=== PATIENT | female | born 1990 | race Caucasian/White ===

== ENCOUNTER 2016-11-23 06:01 | Inpatient (IN) | payer OTHER ==
[2016-11-23] MEDS ORDERED: EPSOM SALT 454 GM TP PRN (06:17)
[2016-11-23] MEDS ORDERED: LR 1,000 ML IV PRN (06:17)
[2016-11-23] MEDS ORDERED: LIDOCAINE 1% 30 ML SDV SC PRN (06:17)
[2016-11-23] MEDS ORDERED: OXYTOCIN/RINGERS LACTATE 1,000 ML IV PRN (06:17)
[2016-11-23] MEDS ORDERED: OLIVE OIL 118 ML BTL MISC PRN (06:17)
[2016-11-23] MEDS ORDERED: TERBUTALINE SULFATE 1 MG/ML VIAL IV PRN (06:17)
--- NOTE | 2016-11-23 06:22 | OBPROG ---
OBG Progress Note Assessment/Plan: Assessment: Plan: Subjective: Denies feeling great pain. " I am feeling cramping." - SVE Dilation (cm): 3 Effacement (%): 50 Station: -2 Current Contraction Pattern: Regular FHR (bpm): 135 Membranes: Intact - Physical Exam General Appearance: WD/WN, alert, no apparent distress Estimated Weight: [id number] Respiratory: chest non-tender, lungs clear, normal breath sounds Cardiac/Chest: regular rate, rhythm Abdomen: normal bowel sounds Membranes: Intact Extremities: normal range of motion, Timothy's sign (negative bilaterally) DTR- Lower Extremities: Knee (R): 1+, Knee (L): 1+ Skin: normal color, warm/dry Neuro/Psych: no motor/sensory deficits, alert, normal mood/affect, oriented x 3 ICD10 Worksheet Patient Problems: Problems Problem Status Onset (spontaneous vaginal delivery) Acute
[2016-11-23] MEDS ORDERED: OXYTOCIN/RINGERS LACTATE 500 ML IV SCH (06:30)
[2016-11-23] MEDS ORDERED: AMMONIA AROMATIC 1 EACH AMP IH ONE (06:33)
[2016-11-23] MEDS ORDERED: MISOPROSTOL 200 MCG TAB ONE (07:09)
--- NOTE | 2016-11-23 07:23 | GHP ---
[f rep st] HISTORY AND PHYSICAL DATE OF ADMISSION: 11/23/2016 HISTORY OF PRESENT ILLNESS: The patient is a 25-year-old, 2, para 1, living 1, with an EDC of 11/14/2016, which gives her a gestational age of 41-2/7 weeks. Patient feeling positive mo vement. Denies rupture of membranes. Denies bloody show. States feeling some cramping. On admit to Labor and Delivery, Morejon bulb that was placed yesterday in the office at 5 p.m. on 11/22/2016 fe ll out. Exam was 2-3 cm, 50% effaced, -2 station, cephalic, mid, soft. MEDICAL HISTORY: The patient has a history of frequent UTIs. SURGICAL HISTORY: Broken right elbow repair at age 13, tonsillectomy at age 20. history in 05/2015 a male at 8 pounds 11 ounces, 41+ weeks, 24-hour labor, vaginal delivery with an epidural . The patient had a third-degree tear and a right periurethral tear. OTHER HISTORY: Patient is A negative. Rubella non immune. One hour GTT was abnormal. T hree hour GTT was within normal limits. The patient at 32 weeks declined Tdap, had Tdap as a G1. FAMILY HISTORY: Noncontributory. ASSESSMENT: GENERAL: Patient is awake, alert, oriented x3. LUNGS: Clear bilaterally. ABDOMEN: Bowel sounds are positive in all 4 quadrants. DTRs are 1+ bilaterally. Homans sign is negative brandt aterally. Exam of cervix was 2-3 cm, 50% effaced, soft, -2 station, cephalic, and mid. LABS: Patient is A negative. Antibody negative. RPR is nonreactive. Rubella is nonimmune. Hepat itis is negative. HIV is negative. Pap was negative. Gonorrhea and chlamydia in 03/2016 were both negative. Quad screen on 06/01/2016 was negative. Her last hematocrit was 35.4. PLAN: Patient is GBS negative. Epidural for pain relief at patient request. Pitocin for induction of labor. The patient verbalized understanding of Pitocin per protocol. The patient requesting be ginning Pitocin at 1 milliunit. This was consented to. The patient hoping for a similar delivery t o her last baby. Explained the procedure, Pitocin, AROM of bag of water. Verbalized understanding. Dr. Randee Tamayo will take call today. Will take over care at 7 a.m. /[id number]/MODL
[2016-11-23 07:59] LABS: % IMMATURE GRANULYOCYTES 0.5 % (0.0-1.1); ABSOLUTE IMMATURE GRANULOCYTES 0.05 10^3/uL (0.00-0.10); ADD DIFF? NO; ADD MORPH? NO; ADD SCAN? NO; ATYPICAL LYMPHOCYTE FLAG 10 (0-99); FRAGMENT RBC FLAG 0 (0-99); HEMATOCRIT 40.6 % (38.0-47.0); HEMOGLOBIN 13.6 g/dL (12.6-16.3); LEFT SHIFT FLG 0 (0-99); LIPEMIA HEMOLYSIS FLAG 80 (0-99); MEAN CELL HEMOGLOBIN 30.6 pg (27.9-34.1); MEAN CELL HEMOGLOBIN CONCENTR. 33.5 g/dL (32.4-36.7); MEAN CELL VOLUME 91.2 fL (81.5-99.8); PLATELET CLUMPS FLAG 0 (0-99); PLATELET COUNT 226 10^3/uL (150-400); RED BLOOD CELL COUNT 4.45 10^6/uL (4.18-5.33)
[2016-11-23] MEDS ORDERED: PHENYLEPHRINE HCL 100 MCG/ML SYR ONE (12:54)
[2016-11-23] MEDS ORDERED: BUPIVACAINE 0.25% 30 ML SDV ONE (12:54)
[2016-11-23] MEDS ORDERED: fentaNYL 100 MCG/2 ML INJ ONE (12:55)
--- NOTE | 2016-11-23 14:09 | OBPROG ---
OBG Progress Note Assessment/Plan: Assessment: Plan: Subjective: patient comfortable with epidural. AROM - small amount of fluid. camargo in place Objective: 11/23/16 07:35 Patient ABO/Rh A NEGATIVE 11/23/16 07:35 - SVE Dilation (cm): 3, 4 Effacement (%): 50 Station: -2 Current Contraction Pattern: Regular FHR Pattern Variability: Moderate FHR Category: 1 Membranes: AROM Amniotic Fluid Color: Clear, Blood Tinged - Physical Exam Estimated Weight: [id number] ICD10 Worksheet Patient Problems: Problems Problem Status Onset (spontaneous vaginal delivery) Acute
[2016-11-23] MEDS ORDERED: fentaNYL 2MCG/ML/BUP 0.1% RTU 100 ML BAG EP ONE (14:52)
--- NOTE | 2016-11-23 16:38 | OBPROG ---
OBG Progress Note Assessment/Plan: Assessment: Plan: Subjective: patient comfortable with epidural. pitocin is at 18 mu. minimal change in cervix. IUPC placed. patient repositioned into hands and knees. Objective: 11/23/16 07:35 Patient ABO/Rh A NEGATIVE 11/23/16 07:35 - SVE Dilation (cm): 3, 4 Effacement (%): 50 Station: -2 Current Contraction Pattern: Regular FHR Pattern Variability: Moderate FHR Category: 1 Membranes: AROM - Physical Exam Estimated Weight: [id number] ICD10 Worksheet Patient Problems: Problems Problem Status Onset (spontaneous vaginal delivery) Acute
--- NOTE | 2016-11-23 18:34 | OBPROG ---
OBG Progress Note Assessment/Plan: Assessment: Plan: Subjective: patient doing well. comfortable with epidural. out of hands and knees position. SVE 5/70/-2. will continue to reposition. contractions adequate. Objective: 11/23/16 07:35 Patient ABO/Rh A NEGATIVE 11/23/16 07:35 - SVE Dilation (cm): 5 Effacement (%): 75 Station: -2 Current Contraction Pattern: Regular FHR Pattern Variability: Moderate FHR Category: 2 - Physical Exam Estimated Weight: [id number] ICD10 Worksheet Patient Problems: Problems Problem Status Onset (spontaneous vaginal delivery) Acute
--- NOTE | 2016-11-23 19:56 | OBPROC ---
- Labor and Delivery Onset of Contractions Date: 11/23/16 Onset of Contractions Time: 16:45 Onset of Contractions Type: Induced Rupture of Membranes Date: 11/23/16 Rupture of Membranes Time: 13:55 Rupture of Membranes Type: Artificial Amniotic Fluid Color: Clear Delivery Type: Spontaneous Placenta Delivery Date: 11/23/16 Placenta Delivery Time: 19:33 Episiotomy/Laceration: 2nd Degree Repair: 3-0 EBL: 300 Complications: None - Medications Labor Augmentation/Induction Meds Used: Pitocin Labor Augmentation/Induction Indication: Post Dates Anesthesia: Epidural - Info A Delivery Date: 11/23/16 Delivery Time: 19:25 Sex of : Female Score (1 Min): 8 Score (5 Min): 9
[2016-11-23] MEDS ORDERED: HYDROCODONE/APAP 5/325 TAB PO PRN (19:57)
[2016-11-23] MEDS ORDERED: ACETAMINOPHEN 325 MG TAB PO PRN (19:57)
[2016-11-23] MEDS ORDERED: HYDROCORTISONE 0.5% CREAM TP PRN (19:57)
[2016-11-23] MEDS ORDERED: SIMETHICONE 80 MG TAB CHEW PO PRN (19:57)
[2016-11-23] MEDS: IBUPROFEN 600 MG TAB PO PRN (19:57)
[2016-11-24] MEDS: IBUPROFEN 600 MG TAB PO PRN ×4 (03:40→22:07)
[2016-11-24 08:20] VITALS: RESP 16
--- NOTE | 2016-11-24 08:23 | SOAPPROG ---
SOAP Progress Note Assessment/Plan: Assessment: 25y/o day 1 s/p 11/23 @1925 Plan: Routine PP care Rev PP precautions Anticipate discharge to home tomorrow 11/2511/24/16 08:20 Subjective: Pt resting in bed with on chest. Pain well-controlled. Tolerating regular diet. Reports lochia becoming light. going well. Voiding without difficulty. Denies flatus, BM. Objective: Vital Signs Temp Pulse Resp BP Pulse Ox 36.8 C 81 16 112/73 97 11/24/16 08:00 11/24/16 08:00 11/24/16 08:00 11/24/16 08:00 11/24/16 08:00 Laboratory Results 11/23/16 07:35 11/23/16 11/24/16 11/25/16 05:59 05:59 05:59 Output Total 300 Balance -300 Physical Exam - Physical Exam General Appearance: alert, no apparent distress Respiratory: lungs clear, normal breath sounds Cardiac/Chest: regular rate, rhythm Abdomen: non-tender, soft Pelvic Exam: vaginal bleeding (lochia light), other (fundus firm @U) Skin: normal color, warm/dry Extremities: normal range of motion, non-tender, pedal edema (trace BLE edema) Neuro/Psych: alert, normal mood/affect, oriented x 3 ICD10 Worksheet Patient Problems: Problems Problem Status Onset (spontaneous vaginal delivery) Acute
[2016-11-25] MEDS: IBUPROFEN 600 MG TAB PO PRN ×2 (06:26→12:26)
--- NOTE | 2016-11-25 09:40 | SOAPPROG ---
SOAP Progress Note Assessment/Plan: Assessment: PPD 2 s/p sore nipples Plan: D/C home 11/25/16 09:37 Subjective: Doing well. Baby had cluster feeding through noc so nipples are very sore. Has apno cream and has used sparingly. Urinating fine. bld is light. Worse cramps yesterday but ibu was controlling. Bottom not too sore. Rec'd Rhogam Objective: Vital Signs Temp Pulse Resp BP Pulse Ox 36.5 C 78 16 110/77 97 11/24/16 20:52 11/24/16 20:52 11/24/16 20:52 11/24/16 20:52 11/24/16 20:52 Laboratory Results 11/23/16 07:35 11/24/16 11/25/16 11/26/16 05:59 05:59 05:59 Output Total 300 Balance -300 Physical Exam - Physical Exam General Appearance: WD/WN Abdomen: non-tender, soft, other (FF at umb -2) Pelvic Exam: vaginal bleeding (normal lochia) Extremities: non-tender, pedal edema (mild) Neuro/Psych: normal mood/affect ICD10 Worksheet Patient Problems: Problems Problem Status Onset (spontaneous vaginal delivery) Acute
[2016-11-25 10:21] VITALS: BP 108/74; PULSE 68; TEMP 98.3; O2SAT 98
== END 2016-11-25 13:20 | disposition home or self-care (01) | DRG 775 ==
LOC: FLD 06:01 → FOB 21:51
PROVIDERS: ADMIT Obstetrics & Gynecology; ATTEND Obstetrics & Gynecology
PROC: 0KQM0ZZ Repair Perineum Muscle, Open Approach (ICD-10-PCS; principal; 2016-11-23)
PROC: 10907ZC Drainage of Amniotic Fluid, Therapeutic from Products of Conception, Via Natural or Artificial Opening (ICD-10-PCS; principal; 2016-11-23)
PROC: 10E0XZZ Delivery of Products of Conception, External Approach (ICD-10-PCS; principal; 2016-11-23)
DX: O48.0 Post-term pregnancy (principal); O70.1 Second degree perineal laceration during delivery; Z87.440 Personal history of urinary (tract) infections; Z3A.41 41 weeks gestation of pregnancy; Z37.0 Single live birth
CPT/HCPCS: J2370; J2590; J3010; J3105

== ENCOUNTER 2018-06-18 12:48 | Inpatient (IN) | payer OTHER ==
[2018-06-18] MEDS ORDERED: LR 1,000 ML IV SCH (14:00)
[2018-06-18] MEDS ORDERED: EPSOM SALT 454 GM TP PRN (15:15)
[2018-06-18] MEDS ORDERED: LIDOCAINE 1% 300 MG/30 ML SDV SC PRN (15:15)
[2018-06-18] MEDS ORDERED: LR 1,000 ML IV PRN (15:15)
[2018-06-18] MEDS ORDERED: IBUPROFEN 600 MG TAB PO PRN (15:15)
[2018-06-18] MEDS ORDERED: TERBUTALINE SULFATE 1 MG/ML VIAL IV PRN (15:15)
[2018-06-18] MEDS ORDERED: MISOPROSTOL 200 MCG TAB PO PRN (15:15)
[2018-06-18] MEDS ORDERED: AMMONIA AROMATIC 1 EACH AMP IH PRN (15:15)
[2018-06-18] MEDS ORDERED: OLIVE OIL 118 ML BTL MISC PRN (15:15)
[2018-06-18] MEDS ORDERED: OXYTOCIN/RINGERS LACTATE 1,000 ML IV PRN (15:15)
[2018-06-18] MEDS ORDERED: LR 500 ML IV PRN (15:16)
[2018-06-18] MEDS ORDERED: OXYTOCIN/RINGERS LACTATE 500 ML IV SCH (15:30)
[2018-06-18 15:50] LABS: PLATELET COUNT 209 10^3/uL (150-400)
--- NOTE | 2018-06-18 16:01 | GHP ---
DATE OF ADMISSION: 06/18/2018 ADMITTING DIAGNOSIS: 1. Intrauterine at 39 weeks 3 days. 2. Premature rupture of membranes. HISTORY OF PRESENT ILLNESS: Patient is a 27-year-old, 3, para 2-0-0-2, at 39 weeks and 3 days with estimated due date 06/22/2018 by LMP 09/15/2017 and consistent with first trimester ultrasound at 8 weeks. The patient presents with complaints of leakage of fluid at 11 o'clock last night. She states there was clear fluid, and no odor. The patient called the on-call doctor and was told to wait to see if labor would start; and if not, to present 12 hours later to Labor and delivery. Patient states she is still leaking clear fluid. States good movement. Denies any contractions or vaginal bleeding. Patient has good care at [facility], and presented at 8 weeks. The patient's is complicated by short interval with her last delivery in November 2016. She is Rh negative, and received RhoGAM at 28 weeks. Rubella is nonimmune. The patient did develop anemia of , and is tolerating iron. All genetic testing was negative. Anatomy scan revealed a low-lying placenta, which did resolve on follow-up scan. There was an estimated weight in 10th percentile on anatomy scan and followup growth scan showed normal growth in 30th percentile with normal fluid. She declined Tdap as well as flu vaccine. GBS culture is negative PAST OB HISTORY: In 05/2015, she delivered a viable male at 41 weeks and 4 days, weighing 11 pounds 8 ounces, via vaginal delivery, uncomplicated. In November 2016, she delivered a viable female infant at 41 weeks 2 days, weighing 7 pounds 10 ounces, via vaginal delivery that was uncomplicated. She was induced both times and had an epidural. PAST ADMINISTRATIVE SUPPORT SPECIALIST HISTORY: Age of menarche 11. Cycles are every 29-30 days for 4-5 days. LMP of 09/15/2017. Positive test 10/14/2017. The patient denies a history of abnormal Pap smears or any exposure to sexually transmitted diseases. CURRENT MEDICATIONS: Include vitamins, DHA, and iron. ALLERGIES: No known drug allergies. PAST MEDICAL HISTORY: Patient has a history of frequent UTIs. PAST SURGICAL HISTORY: Broken right elbow age 13 secondary to soccer injury; tonsillectomy at age 20. FAMILY HISTORY: Maternal grandmother from emphysema secondary to smoking. Paternal aunt, liver disease. Paternal grandmother, ovarian cancer diagnosed in her 60s. SOCIAL HISTORY: The patient is . She is [id number] mom. She lives with , Andrew, and their 2 children. The patient denies any alcohol, tobacco, or illicit drug use currently. REVIEW OF SYSTEMS: Ten point review of systems negative. Pertinent positives noted in HPI. LABS: First trimester H and H 13.4 and 38.8, platelets 261. Blood type is A negative, antibody negative. RPR nonreactive. Rubella nonimmune. Hepatitis B surface antigen negative. HIV negative. UDS was negative. Varicella and parvo virus immune. Zika virus testing negative. UA and culture negative. Gonorrhea, chlamydia cultures negative. AFP negative 01/12/2018. Innatal screen negative 12/03/2017. H and H 3rd trimester 12 and 37, platelets 182. One-hour Glucola was 80. Antibody screen negative, patient did receive RhoGAM. GBS culture is negative. EXAMINATION ON ADMISSION: VITAL SIGNS: Stable. The patient is afebrile at 36.9, heart rate 112, respirations 18, blood pressure 126/72. GENERAL: Well- nourished well-developed female. Alert, oriented x3. No apparent distress. SKIN: Warm, dry without rash. NEURO: Grossly intact. CARDIOVASCULAR: Regular rate and rhythm. LUNGS: Clear to auscultation bilaterally. ABDOMEN: Gravid, soft, nontender. PELVIC EXAM: Noted to be 3 cm dilated, 85% effaced, and -1 station. Positive nitrazine and positive AmniSure. EXTREMITIES: Normal to inspection without calf tenderness or edema. Bedside ultrasound done and confirmed cephalic. presentation. heart tones on admission were Category II tracing with variable decels, then resolved after liter fluid bolus. Now, FHTs are reassuring with baseline 140 bpm. Positive accels. No decels. Moderate variability. On Falman, there is uterine irritability. ASSESSMENT/PLAN: Patient is a 27-year-old 3, para 2-0-0-2, at 39 weeks 3 days with premature rupture of membranes 1. Admit to Labor and Delivery. 2. Discussed induction of labor since it has been 12 hours since ruptured membranes and no signs of labor. Will proceed with Pitocin and start per protocol. 3. Group B streptococcus culture is negative, no prophylactic antibiotics are needed. 4. Patient does desire an epidural. 5. Anticipate normal spontaneous vaginal delivery. /[id number]/MODL MTDD
[2018-06-18] MEDS ORDERED: LIDOCAINE 1% 300 MG/30 ML SDV ONE (17:00)
[2018-06-18] MEDS ORDERED: AMMONIA AROMATIC 1 EACH AMP IH ONE (17:01)
[2018-06-18] MEDS ORDERED: TERBUTALINE SULFATE 1 MG/ML VIAL ONE (17:01)
[2018-06-18] MEDS ORDERED: OXYTOCIN 10 UNIT/ML VIAL ONE (17:01)
[2018-06-18] MEDS ORDERED: MISOPROSTOL 200 MCG TAB ONE (17:01)
[2018-06-18] MEDS ORDERED: OLIVE OIL 118 ML BTL ONE (17:01)
[2018-06-18] MEDS ORDERED: BUPIVACAINE 0.25% 30 ML SDV ONE (21:38)
[2018-06-18] MEDS ORDERED: fentaNYL 2MCG/ML/BUP 0.1% RTU 100 ML BAG EP ONE (21:38)
[2018-06-18] MEDS ORDERED: PHENYLEPHRINE HCL 100 MCG/ML SYR ONE (21:38)
[2018-06-18] MEDS ORDERED: ONDANSETRON 4 MG/2 ML VIAL IVP PRN (22:15)
[2018-06-18] MEDS ORDERED: NALOXONE HCL 0.4 MG/ML INJ IVP PRN (22:15)
--- NOTE | 2018-06-18 22:16 | PREANESOB ---
Obstetric Pre-Anesthesia Info - General Info Proposed Procedure: DELFINA : 3 Para: 2 LEDY: 06/22/18 Gestational Age: 39 week(s) and 3 day(s) - Info Status: Full Term FHR Pattern: Reassuring - Labor Status Labor Epidural: Yes Anesthesia Allergies/Adverse Reactions: Allergy/AdvReac Type Severity Reaction Status Date / Time No Known Allergies Allergy Unverified 06/03/15 05:01 Home Medications: Medication Instructions Recorded Vit27&Calcium/Iron/FA 1 tab PO DAILY 06/03/15 [] Ibuprofen [Motrin (*)] 600 mg PO Q6HRS PRN #0 tab 11/25/16 Visit Medications: Generic Name Dose Route Start Last Admin Trade Name Freq PRN Reason Stop Dose Admin Ammonia (Aromatic Spirit) 1 each 06/18/18 15:15 Ammonia Aromatic IH 06/28/18 15:14 ONCE PRN Fainting Lactated Ringer's 1,000 mls @ 0 mls/hr 06/18/18 14:00 Lr IV 12/15/18 13:59 CONT YONI Wide Open Lactated Ringer's 1,000 mls @ 0 mls/hr 06/18/18 15:15 Lr IV 06/19/18 15:14 PRN PRN SEE PROTOCOL CONDITIONS Protocol Per Protocol Lactated Ringer's 500 mls @ 500 mls/hr 06/18/18 15:16 Lr IV 06/19/18 15:16 PRN PRN Maternal Hypotension Oxytocin/Lactated Ringer's 1,000 mls @ 0 mls/hr 06/18/18 15:15 Pitocin 20 Units/Lr (Premix) IV PRN PRN Post bleeding Wide Open Oxytocin/Lactated Ringer's 500 mls @ 0 mls/hr 06/18/18 15:30 06/18/18 15:34 Pitocin 30 Units/Lr (Premix) IV 12/15/18 15:29 500 mls CONT YONI Administration Protocol Per Protocol Ibuprofen 600 mg 06/18/18 15:15 Motrin PO ONCE PRN post , pain Lidocaine HCl 300 mg 06/18/18 15:15 Lidocaine Hcl 1% SC 12/15/18 15:14 ONCE PRN episiotomy Magnesium Sulfate 454 gm 06/18/18 15:15 Epsom Salt TP 12/15/18 15:14 Q1H PRN perineal discomfort Misoprostol 800 - 1,000 mcg 06/18/18 15:15 Cytotec PO 12/15/18 15:14 ONCE PRN Vaginal Atony/Bleeding [place] Oil 118 ml 06/18/18 15:15 Sweet Oil MISC 12/15/18 15:14 ONCE PRN perineal massage Terbutaline Sulfate 0.25 mg 06/18/18 15:15 Brethine IV 12/15/18 15:14 ONCE PRN Tachysystole Discontinued Medications Generic Name Dose Route Start Last Admin Trade Name Freq PRN Reason Stop Dose Admin Ammonia (Aromatic Spirit) Confirm 06/18/18 17:01 Ammonia Aromatic Administered 06/18/18 17:02 Dose 1 each IH .STK-MED ONE Bupivacaine HCl Confirm 06/18/18 21:38 Sensorcaine 0.25% Sdv Administered 06/18/18 21:39 Dose 30 ml .ROUTE .STK-MED ONE Fentanyl/Bupivacaine HCl Confirm 06/18/18 21:38 Fentanyl/Bupivacaine/Ns 2 Mcg/Ml 0.1% (Premix Administered 06/18/18 21:39 Dose 100 ml EP .STK-MED ONE Lidocaine HCl Confirm 06/18/18 17:00 Lidocaine Hcl 1% Administered 06/18/18 17:01 Dose 300 mg .ROUTE .STK-MED ONE Misoprostol Confirm 06/18/18 17:01 Cytotec Administered 06/18/18 17:02 Dose 1,000 mcg .ROUTE .STK-MED ONE Glenmont Oil Confirm 06/18/18 17:01 Sweet Oil Administered 06/18/18 17:02 Dose 118 ml .ROUTE .STK-MED ONE Oxytocin Confirm 06/18/18 17:01 Pitocin Administered 06/18/18 17:02 Dose 40 unit .ROUTE .STK-MED ONE Phenylephrine HCl Confirm 06/18/18 21:38 Neosynephrine Administered 06/18/18 21:39 Dose 1,000 mcg .ROUTE .STK-MED ONE Terbutaline Sulfate Confirm 06/18/18 17:01 Brethine Administered 06/18/18 17:02 Dose 1 mg .ROUTE .STK-MED ONE - Anesthesia History Response to Local Anesthetics: Normal Anesthesia & Operative History: No Prior Problems Family Anesthesia History: Negative - Vital Signs Height/Weight (Nursing): Height 170.18 cm Weight 73.936 kg - Focused Exam Neck exam: FROM Mallampati Score: Class 1 Mouth exam: normal dental/mouth exam Pulmonary: no respiratory distress Cardiovascular: regular rate and rhythym Labs: 06/18/18 15:45 Patient ABO/Rh A NEGATIVE 06/18/18 14:45 - Plan Anesthetic Plan: DELFINA Consent Signed and on Chart: Yes
[2018-06-18] MEDS ORDERED: LR 500 ML IV SCH (22:30)
[2018-06-18] MEDS ORDERED: fentaNYL 2MCG/ML/BUP 0.1% RTU 100 ML EP SCH (22:30)
--- NOTE | 2018-06-18 22:30 | OBPROG ---
Labor Progress Note Assessment/Plan: Assessment: 27 y/o @ 39 3/7 weeks with PROM, early labor Plan: Continue current management Pt afebrile s/p epidural, pt is comfortable Pitocin at 12 mu/min, cont per protocol SVE: 4/60/-2 IUPC placed without difficulty FHTs - Cat II tracing with intermittent mild variable decels Will cont to closely monitor 06/18/18 22:38 Subjective/Intrapartum Course: 06/18/18 22:32 Pt is comfortable, s/p epidural Objective: 06/18/18 15:45 Patient ABO/Rh A NEGATIVE 06/18/18 14:45 - SVE Dilation (cm): 4 Effacement (%): 50 (60) Station: -2 Membranes: SROM Amniotic Fluid Color: Clear - Contraction Pattern Assessment Current Contraction Pattern: Regular (q3-4 min) - FHR Assessment Nance FHR (bpm): 150 FHR Pattern Variability: Moderate FHR Category: 2 (mild intermittent variable decels) - Procedures Non-surgical Procedures: IUPC - AP Antepartum Course: 06/18/18 22:36 Short interval. Rh negative. Rubella nonimmune. Anemia of . GBS negative. Oxytocin Orders Assessment - Pre-Induction/Augmentation Assessment Gestational Age: 39 week(s) and 3 day(s) ICD10 Worksheet Patient Problems: Problems Problem Status Onset Delayed delivery after SROM (spontaneous rupture of membranes), deliv Acute
[2018-06-18] MEDS: PHENYLEPHRINE HCL 100 MCG/ML SYR IVP PRN (23:22)
[2018-06-19] MEDS: PHENYLEPHRINE HCL 100 MCG/ML SYR IVP PRN ×2 (00:22→00:31)
[2018-06-19] MEDS ORDERED: oxyCODONE IR 5 MG TAB PO PRN (01:43)
[2018-06-19] MEDS ORDERED: HYDROCORTISONE 0.5% CREAM TP PRN (01:43)
[2018-06-19] MEDS ORDERED: SIMETHICONE 80 MG TAB CHEW PO PRN (01:43)
--- NOTE | 2018-06-19 01:46 | OBDEL ---
Info Type: Vaginal Presentation at Delivery: Vertex L&D Analgesia/Anesthesia Type: Epidural GBS+: No Intrapartum Medications: Generic Name Dose Route Start Last Admin Trade Name Freq PRN Reason Stop Dose Admin Lactated Ringer's 1,000 mls @ 0 mls/hr 06/18/18 14:00 06/18/18 23:05 Lr IV 12/15/18 13:59 1,000 mls CONT YONI Administration Wide Open Oxytocin/Lactated Ringer's 500 mls @ 0 mls/hr 06/18/18 15:30 06/18/18 15:34 Pitocin 30 Units/Lr (Premix) IV 12/15/18 15:29 500 mls CONT YONI Administration Protocol Per Protocol Fentanyl/Bupivacaine HCl 100 mls @ 0 mls/hr 06/18/18 22:30 06/18/18 23:05 Fentanyl/Bupivacaine/Ns 2 Mcg/Ml 0.1% (Premix EP 06/28/18 22:29 100 mls CONT YONI Administration Protocol As Directed Phenylephrine HCl 100 mcg 06/18/18 22:15 06/19/18 00:22 Neosynephrine IVP 12/15/18 22:14 100 mcg .Q2M PRN Administration Hypotension - Hospital Course Intrapartum: 06/18/18 22:32 Pt is comfortable, s/p epidural Indications for Delivery: SROM Vaginal Delivery - Delivery Provider Delivery Physician/CNM: Graciela Lawson - Labor and Delivery Onset of Contractions Date: 06/19/18 Onset of Contractions Type: Augmented Rupture of Membranes Date: 06/17/18 Rupture of Membranes Time: 23:00 Rupture of Membranes Type: Spontaneous Amniotic Fluid Color: Clear Dilation Complete Date: 06/19/18 Dilation Complete Time: 00:54 Placenta Delivery Date: 06/19/18 Placenta Delivery Time: 01:17 Non-surgical Procedures: IUPC Laceration: 2nd Degree Repair: 3-0, Vicryl Vaginal Sponge Count Correct: Yes Vaginal Needle Count Correct: Yes Vaginal Sweep Performed: Yes EBL: 250 Delivery Events: None Delivery Comment: delivered without difficulty. baby to mother's abdomen. - Medications Labor Augmentation/Induction Methods Used: Pitocin Data LEDY: 06/22/18 Gestational Age: 39 week(s) and 4 day(s) Nance Delivery Date: 06/19/18 Delivery Time: 01:10 Sex of : Female Score (1 Min): 9 Score (5 Min): 9 ICD10 Worksheet Patient Problems: Problems Problem Status Onset Delayed delivery after SROM (spontaneous rupture of membranes), deliv Acute (spontaneous vaginal delivery) Acute Second degree perineal laceration Acute - ICD10 Problem Qualifiers (1) (spontaneous vaginal delivery) (2) Second degree perineal laceration
[2018-06-19] MEDS: ACETAMINOPHEN 325 MG TAB PO SCH ×4 (05:14→17:12)
[2018-06-19] MEDS: IBUPROFEN 600 MG TAB PO SCH ×3 (08:47→20:19)
[2018-06-19] MEDS: DOCUSATE SODIUM 100 MG CAP PO PRN ×2 (08:47→20:19)
--- NOTE | 2018-06-19 13:00 | PDPAINCON ---
Pain Management Consultation - Subjective Pain at rest (/10): 0 Pain with activity (/10): 0 Pain is: no pain at all Activity: able to ambulate - Objective Technique: continuous epidural Catheter site: clean, dry, intact Sensory and motor exam: block has resolved, no apparent ill effects Vital signs: stable - Assessment/Plan Assessment/Plan: pain well-controlled, continue current mgmt
--- NOTE | 2018-06-19 17:44 | OBPP ---
Progress Note Assessment/Plan: Assessment: PPD0 (delivered 0100 Tuesday AM) s/p . Precip'd and delivered by Graciela [place]. - Routine cares. - Ready for home tomorrow - baby gets final testing 0100 tonight. LIZBET Subjective/ Course: Feeling good, pain controlled, BF going well, no complaints. Would like to be able to leave tomorrow. Objective: 06/18/18 15:45 Patient ABO/Rh A NEGATIVE 06/19/18 02:40 Temp Pulse Resp BP Pulse Ox 37.0 C 83 16 104/76 94 06/19/18 08:30 06/19/18 08:30 06/19/18 08:30 06/19/18 08:30 06/19/18 06:39 Uterine Position/Fundal Height: At Umbilicus Uterine Tone: Firm
[2018-06-20] MEDS: IBUPROFEN 600 MG TAB PO SCH ×3 (02:59→10:51)
[2018-06-20] MEDS: ACETAMINOPHEN 325 MG TAB PO SCH ×2 (02:59→12:31)
--- NOTE | 2018-06-20 09:55 | OBPP ---
Progress Note Assessment/Plan: Assessment:Multip, ppd#1 S/P , doing great. Desires homegoing. Plan: DC home, reviewed std vag deliv pp instructions. See dc summary. Yasmine Merino MD, FACOG [facility] 06/20/18 09:51 Subjective/ Course: Feeling good, pain controlled, BF going well, no complaints. Would like to be able to leave tomorrow. 06/20/18 09:53 Doing well, BF going well - clustering overnight. Mod lochia, ambulating and voiding without difficulty. froylan reg diet Objective: 06/20/18 03:05 Patient ABO/Rh A NEGATIVE 06/19/18 02:40 Temp Pulse Resp BP Pulse Ox 37.0 C 80 16 112/80 96 06/19/18 08:30 06/19/18 20:26 06/19/18 20:26 06/19/18 20:26 06/19/18 20:26 gen - pleasant, NAD CV - RRR chest - CTAB abd - + bs, fundus firm at u-2 ext - trace edema, no calf tenderness Uterine Position/Fundal Height: Umbilicus -2 Uterine Tone: Firm
--- NOTE | 2018-06-20 09:57 | OBGCSDC ---
General Delivery Information - General Info : 3 Para: 3 Abortions: 0 Type: Vaginal L&D Analgesia/Anesthesia Type: Epidural Admission Date: 06/18/18 Labs: Patient ABO/Rh A NEGATIVE 06/19/18 02:40 Hct 35.6 % (38.0-47.0) L 06/20/18 03:05 - Hospital Course Antepartum: 06/18/18 22:36 Short interval. Rh negative. Rubella nonimmune. Anemia of . GBS negative. Intrapartum: 06/18/18 22:32 Pt is comfortable, s/p epidural : Feeling good, pain controlled, BF going well, no complaints. Would like to be able to leave tomorrow. 06/20/18 09:53 Doing well, BF going well - clustering overnight. Mod lochia, ambulating and voiding without difficulty. froylan reg diet Vaginal - Delivery Provider Delivery Physician/CNM: Graciela Lawson - Diagnosis Labor: Augmented Rupture of Membranes Type: Spontaneous Amniotic Fluid Color: Clear Laceration: 2nd Degree Repair: 3-0, Vicryl Delivery Events: None - Procedures Non-surgical Procedures: IUPC - Delivery Non-surgical Procedures: IUPC EBL: 250 Data LEDY: 06/22/18 Gestational Age: 39 week(s) and 5 day(s) Nance Delivery Date: 06/19/18 Delivery Time: 01:10 Sex of : Female Weight (gm): 3416 g Score (1 Min): 9 Score (5 Min): 9 Discharge Information - Discharge Information Condition: Good Instruction/Follow Up: See Instruction Sheet, Four Weeks ([facility] mood check appoinntment), Six Weeks (with physician at [facility])
[2018-06-20] MEDS: DOCUSATE SODIUM 100 MG CAP PO PRN (10:51)
[2018-06-20 12:33] VITALS: BP 108/72
== END 2018-06-20 12:10 | disposition home or self-care (01) | DRG 806 ==
LOC: FLD 12:48 → OBSVTOIN 15:15 → FOB 06-19 04:31
PROVIDERS: ADMIT Obstetrics & Gynecology; ATTEND Obstetrics & Gynecology
PROC: 10E0XZZ Delivery of Products of Conception, External Approach (ICD-10-PCS; principal; 2018-06-18)
PROC: 0KQM0ZZ Repair Perineum Muscle, Open Approach (ICD-10-PCS; principal; 2018-06-18)
PROC: 3E033VJ Introduction of Other Hormone into Peripheral Vein, Percutaneous Approach (ICD-10-PCS; principal; 2018-06-18)
PROC: 3E0234Z Introduction of Serum, Toxoid and Vaccine into Muscle, Percutaneous Approach (ICD-10-PCS; principal; 2018-06-18)
DX: O42.92 Full-term premature rupture of membranes, unspecified as to length of time between rupture and onset of labor (principal); O70.1 Second degree perineal laceration during delivery; O76 Abnormality in fetal heart rate and rhythm complicating labor and delivery; O44.43 Low lying placenta NOS or without hemorrhage, third trimester; O26.893 Other specified pregnancy related conditions, third trimester; Z67.91 Unspecified blood type, Rh negative; O99.02 Anemia complicating childbirth; Z3A.39 39 weeks gestation of pregnancy; Z37.0 Single live birth
CPT/HCPCS: J2370; J2590; J3105